=== PATIENT | female | born 1955 | race Caucasian/White ===

== ENCOUNTER 2017-03-24 14:17 | Day surgery (SDC) | payer OTHER ==
[~2017-03-24 14:17] MED LIST: Lidocaine 1% MPF wEPI 200,000* 30 ML SDV ONE
[2017-03-24] MEDS ORDERED: Bupivacaine 0.25% SDV* 30 ML ONE (16:52)
[2017-03-24 17:34] VITALS: BP 158/81
--- NOTE | 2017-03-25 06:24 | OP ---
OPERATIVE REPORT: DATE OF OPERATION: 03/24/17 - [facility] DATE OF : 55 SURGEON: Harris Molina MD JACQUARD CARD CUTTER: CELESTE Bose ANESTHESIOLOGIST: None. ANESTHESIA: Local only with 1% lidocaine with epinephrine and bicarbonate. PRE-OP DIAGNOSIS: Right middle and ring trigger fingers. POST-OP DIAGNOSIS: Right middle and ring trigger fingers. OPERATIVE PROCEDURE: 1. A1 sinan release, right ring finger. 2. A1 sinan release, right middle finger. INDICATIONS: Tatum has had recurrent trigger fingers after injections. I talked to her about risks and benefits and treatment options. She wanted to proceed. ESTIMATED BLOOD LOSS: 5 mL. COMPLICATIONS: None. FINDINGS: As expected. DESCRIPTION OF PROCEDURE: Tatum was seen in the preoperative holding area. The correct side, site, and procedure were identified. We had time-out and then I infiltrated the operative area with 1% lidocaine with epinephrine and bicarbonate. A short time later, we came back to the operating room and the arm was prepped and draped in the usual fashion and a time-out was performed. I first made a 1-cm incision longitudinally over the right middle finger A1 sinan. Dissection was carried down bluntly with the tenotomy scissors, freed up the soft tissue overlying the tendon sheath. Ragnell retractors were placed and the A1 sinan was incised longitudinally just off the radial aspect of the midline with the 15-blade. The release was continued proximally and distally with the tenotomy scissors. I then made a 1-cm longitudinal incision over the right ring finger A1 sinan. In similar fashion, the soft tissue was bluntly released off of the tendon sheath. Ragnell retractors were placed. The A1 sinan was longitudinally incised with the 15-blade. The release was continued proximally and distally with the tenotomy scissors. I then let down the drapes and have Tatum do everything she could possibly do to get the finger to catch. She cannot induce any triggering. We went ahead and irrigated out the wounds. The skin was closed with 4-0 nylon suture. Wounds were dressed with Xeroform, 4x4, sterile Webril, and an Viral wrap. She was then taken to the recovery room in stable condition. [id number]/[facility] #: [id number] [facility]
== END 2017-03-24 17:24 | disposition home or self-care (01) ==
LOC: OREAST 14:17
PROVIDERS: ATTEND Orthopaedic Surgery Hand Surgery
DX: M65.331 Trigger finger, right middle finger (principal); M65.341 Trigger finger, right ring finger; Z87.891 Personal history of nicotine dependence; M19.041 Primary osteoarthritis, right hand
CPT/HCPCS: J2001

== ENCOUNTER 2018-06-15 07:17 | Day surgery (SDC) | payer OTHER ==
[~2018-06-15 07:17] MED LIST changes: +Buffered Lidocaine 1% SYRIN* 1 ML/SYRINGE INTRADERM ONE; +Lactated Ringers 1000 ML Bag* 1,000 ML IV SCH; -Lidocaine 1% MPF wEPI 200,000* 30 ML SDV ONE
[2018-06-15] MEDS ORDERED: Bupivacaine 0.25% SDV PF* 10 ML VIAL INJ ONE (08:14)
[2018-06-15] MEDS ORDERED: fentaNYL* 50 MCG/ML 2 ML VIAL (100 MCG VIAL) ONE (08:20)
[2018-06-15] MEDS ORDERED: Midazolam* 1 MG/ML 2 ML VIAL (2 MG) ONE (08:20)
[2018-06-15] MEDS ORDERED: Naloxone* 0.4 MG/ML 1 ML VIAL IV PRN (08:36)
[2018-06-15] MEDS ORDERED: Lidocaine 2% PF * 5 ML VIAL ONE (08:40)
[2018-06-15] MEDS ORDERED: Propofol* 10 MG/ML 20 ML BTL ONE (08:40)
[2018-06-15 09:04] VITALS: BP 132/79
--- NOTE | 2018-06-15 12:51 | OP ---
DATE OF OPERATION: 06/15/18 [facility] DATE OF : 55 SURGEON: Harris Molina MD PASTING INSPECTOR: CELESTE Bose ANESTHESIOLOGIST: Dr. Peralta. ANESTHESIA: Local MAC. PRE-OP DIAGNOSIS: Right small trigger finger. POST-OP DIAGNOSIS: Right small trigger finger. PROCEDURE PERFORMED: Right small trigger finger release of A1 sinan. INDICATIONS: Tatum has multiple trigger fingers. I have released the middle and the ring before. She now has the small finger that is triggering. We talked about risks and benefits. She wanted to proceed. ESTIMATED BLOOD LOSS: 1 mL. COMPLICATIONS: None. FINDINGS: See above and below. DESCRIPTION OF PROCEDURE: Tatum was seen in the preoperative holding area. The correct side, site, and procedure were identified. We came back to the operating room. The arm was prepped and draped in the usual fashion. A time- out was performed. The operative area has been anesthetized with 0.25% plain Marcaine. The arm was exsanguinated with the Esmarch and the tourniquet was inflated to 250 mmHg. I made a 1-cm longitudinal incision over the A1 sinan of the right small finger. Dissection was carried down and full thickness flaps were bluntly raised off the flexor tendon sheath. The A1 sinan was then incised longitudinally along the radial third with the 15 blade. The release was extended distally and proximally with a tenotomy scissors. There was fraying of the FDS tendon. This was all debrided back and a tenosynovectomy was performed. The wound was irrigated out. Skin was closed with nylon suture. Soft dressings were applied. She was taken to the recovery room in stable condition. [id number]/[facility] #: [id number] [facility]
== END 2018-06-15 09:23 | disposition home or self-care (01) ==
LOC: OREAST 07:17
PROVIDERS: ATTEND Orthopaedic Surgery Hand Surgery
DX: M65.351 Trigger finger, right little finger (principal); Z79.899 Other long term (current) drug therapy; E03.9 Hypothyroidism, unspecified; I10 Essential (primary) hypertension; K21.9 Gastro-esophageal reflux disease without esophagitis; Z87.891 Personal history of nicotine dependence
CPT/HCPCS: J2250; J2704; J3010; J3490